=== PATIENT | female | born 1960 | race Asian ===

== ENCOUNTER 2019-06-25 20:42 | Emergency (ER) | payer OTHER, SELFPAY ==
[2019-06-25 21:02] VITALS: BP 150/85; PULSE 119; RESP 18; TEMP 38.8; O2SAT 97; BMI 22.3
[2019-06-25] MEDS: ACETAMINOPHEN 325 MG TABLET 975 MG PO (21:09)
[2019-06-25 21:39] LABS: Influenza A - CEPHEID Flu A NEGATIVE (NEGATIVE); Influenza B - CEPHEID Flu B POSITIVE (NEGATIVE)
[2019-06-25 21:47] VITALS: TEMP 37.9
[2019-06-25 21:48] VITALS: BP 140/79; PULSE 110; RESP 20; TEMP 37.9; O2SAT 96
--- NOTE | 2019-06-25 22:01 | ED.URI ---
HPI - URI/Sore Throat General Chief Complaint: Upper Respiratory Symptoms Stated Complaint: states she has a cold Time Seen by Provider: 06/25/19 21:54 Source: patient Mode of arrival: Family Vehicle Limitations: no limitations History of Present Illness HPI Narrative: 59-year-old female here for evaluation of body aches, cough, sore throat, fevers for the past 3 days. Has tried some [id number] medications for symptoms without any improvement. Has not had a flu shot yet this year. She was exposed to the flu. Related Data Previous Rx's Medication Instructions Recorded oseltamivir [Tamiflu] 75 mg PO BID 5 Days #9 cap 06/25/19 Allergies Allergy/AdvReac Type Severity Reaction Status Date / Time No Known Drug Allergies Allergy Verified 06/25/19 21:00 Review of Systems Constitutional Constitutional: Reports body ache(s), Reports chills, Reports fatigue, Reports fever(s) and Reports malaise ENT Ears, Nose, Mouth, and Throat: Reports sore throat Cardiovascular Cardiovascular: Denies chest pain Respiratory Respiratory: Reports cough Genitourinary Genitourinary: Denies dysuria Musculoskeletal Musculoskeletal: Reports myalgias and Denies arthralgias Integumentary/Breasts Skin/Breast: Denies lesions and Denies rash Neurologic Neurologic: Denies behavioral changes Psychiatric Psychiatric: Denies behavioral changes Endocrine Endocrine: Reports fatigue Hematologic/Lymphatic Hematologic/Lymphatic: Denies easy bleeding and Denies easy bruising Patient History Medical History Diabetes (Acute) alcohol intake frequency: a few times a month Substance Use Type: marijuana Exam Initial Vital Signs Initial Vital Signs: Vital Signs Temperature 101.9 F H 06/25/19 21:02 Pulse Rate 119 H 06/25/19 21:02 Respiratory Rate 18 06/25/19 21:02 Blood Pressure 150/85 H 06/25/19 21:02 Pulse Oximetry 97 06/25/19 21:02 Const General: cooperative and comfortable Orientation: alert, awake and oriented x3 HENMT Head: normal to inspection and normocephalic Resp Effort & Inspection: normal respiratory effort Cardio Rate: tachycardic GI Inspection: non-distended Skin Lesions: no lesions Rashes: no rashes Neuro General: alert and awake Cognition: normal cognition Speech: speech normal Gait: normal gait Extrem General: normal to inspection Psych Appearance: grossly normal and well kempt Course Orders Ordered: ED Orders 06/25/19 21:05 Influenza A & B (PCR) Stat Discontinued Medications Acetaminophen (Tylenol) 975 mg PO NOW ONE Stop: 06/25/19 21:06 Last Admin: 06/25/19 21:09 Dose: 975 mg Documented by: HARIKA Oseltamivir Phosphate (Tamiflu) 75 mg PO NOW ONE Stop: 06/25/19 22:02 Last Admin: 06/25/19 22:06 Dose: 75 mg Documented by: IAN Vital Signs Vital signs: Vital Signs - 8 hr 06/25/19 21:02 06/25/19 21:47 06/25/19 21:48 Temperature 101.9 F H 100.2 F H 100.2 F H Pulse Rate 119 H 110 H Respiratory Rate 18 20 Blood Pressure 150/85 H Blood Pressure [Right Arm] 140/79 Pulse Oximetry 97 96 06/25/19 22:10 Temperature Pulse Rate 111 H Respiratory Rate 20 Blood Pressure 142/81 H Blood Pressure [Right Arm] Pulse Oximetry 96 MDM - URI/Sore Throat Lab Data Attestation: I reviewed the patient's lab results. Labs: Lab Results 06/25/19 Range/Units 21:05 Influenza A (RT-PCR) Flu a negative (NEGATIVE) Influenza B (RT-PCR) Flu b positive H (NEGATIVE) MDM Narrative Medical decision making narrative: Flu is positive. Has had symptoms for 3 days. We did discuss Tamiflu and the positives and negatives with regard to this medication given her clinical presentation. After this discussion the patient opted not to take the Tamiflu. Did discuss Tylenol and ibuprofen. Discussed return precautions and follow-up instructions. She expressed understanding and agreement with plan. No indication for antibiotics. Discharge Plan Departure Patient Disposition: Home Clinical Impression: Influenza Discharge Date/Time: 06/25/19 22:11 Instructions: DI for Influenza -- Adult Activity Restrictions/Additional Instructions: You can take Tylenol and/or ibuprofen for any fevers or body aches. Contact your primary provider for follow-up. Return to the emergency department for any new or worsening symptoms Prescriptions: New oseltamivir [Tamiflu] 75 mg capsule 75 mg PO BID 5 Days Qty: 9 RF: 0
[2019-06-25] MEDS: OSELTAMIVIR 75 MG CAPSULE PO (22:06)
[2019-06-25 22:10] VITALS: BP 142/81; PULSE 111; RESP 20; O2SAT 96
== END 2019-06-25 22:11 | disposition home or self-care (01) ==
PROVIDERS: Emergency Provider Emergency Medicine
DX: J10.1 Influenza due to other identified influenza virus with other respiratory manifestations (principal)
CPT/HCPCS: 87502; 99283

== ENCOUNTER → 2020-11-19 13:58 | Outpatient (CLI) | payer OTHER, SELFPAY ==
--- NOTE | 2020-11-19 | DI.MRI.S_ITS ---
PROCEDURE: MR SHOULDER RT WO CON INDICATIONS: Pain in right shoulder TECHNIQUE: Noncontrast oblique coronal T2 fast spin echo with fat saturation, oblique sagittal T1 spin echo and T2 fast spin echo with fat saturation, axial T1 spin echo and T2 fast spin echo with fat saturation through the shoulder. COMPARISON: None. FINDINGS: Image quality: Severely degraded by patient motion artifact. Rotator cuff: There is a possible bursal sided partial tear of the supraspinatus tendon. The infraspinatus and subscapularis tendons appear intact throughout. The supraspinatus, infraspinatus and subscapularis tendons are thickened with increased internal signal compatible with tendinosis. Sagittal images demonstrate no muscle atrophy. Bones and bursae: No bone marrow contusions or fractures. No acromioclavicular joint degeneration. The acromion demonstrates conventional anatomy, without an os acromiale. There is a large subacromial/subdeltoid bursal fluid collection. Capsule and soft tissues: Labrum is grossly intact. The long head of the biceps tendon demonstrates normal location and morphology. The rotator interval appears normal, without fibrosis. The coracohumeral ligament is normal in thickness. IMPRESSION: 1. Image quality severely degraded by patient motion artifact. 2. Possible bursal-sided, partial tear of the supraspinatus tendon. 3. Infraspinatus and subscapularis tendinosis. 4. Severe subacromial/subdeltoid bursitis. Dictated by: Elisa Miner MD, PhD on 11/19/2020 at 16:44 Approved by: Elisa Miner MD, PhD on 11/24/2020 at 10:04
== END ==
PROVIDERS: PCP Nurse Practitioner Family; Referring Provider Nurse Practitioner Family; Visit Provider Nurse Practitioner Family
DX: M25.511 Pain in right shoulder (principal); M75.111 Incomplete rotator cuff tear or rupture of right shoulder, not specified as traumatic; M75.51 Bursitis of right shoulder
CPT/HCPCS: 73221